=== PATIENT | male | born 1960 ===

== ENCOUNTER 2020-09-14 15:25 | Inpatient (IN) ==
[2020-09-14] MEDS ORDERED: *HR* HYDROcodone/Acet 5/325 mg TABLET PO PRN (18:06)
[2020-09-14] MEDS ORDERED: Naloxone 0.4 MG/ML INJ IVP PRN (18:06)
[2020-09-14] MEDS ORDERED: Ondansetron 4 MG/2 ML VIAL IVP PRN (18:06)
[2020-09-14] MEDS ORDERED: Melatonin 3 MG TABLET PO PRN (18:06)
[2020-09-14] MEDS ORDERED: Acetaminophen 325 MG TABLET PO PRN (18:06)
[2020-09-14] MEDS ORDERED: Ipratropium/Albuterol Neb 3 ML IH PRN (18:08)
[2020-09-14] MEDS ORDERED: *HR* Heparin 5,000 UNIT/ML VIAL IVP PRN ×2 (18:12)
[2020-09-14] MEDS ORDERED: D5% in Water 1,000 ML IVC PRN (18:15)
[2020-09-14] MEDS ORDERED: Dextrose Gel 15 GM/37.5 ML TUBE PO PRN ×2 (18:15)
[2020-09-14] MEDS ORDERED: *HR* Dextrose 50 % in Water (Vial) 50 ML VIAL IVP PRN (18:15)
[2020-09-14] MEDS ORDERED: Saline Nasal Spray 44 ML BOTTLE NS PRN (18:17)
[2020-09-14] MEDS ORDERED: Nicotine 2 MG GUM BC PRN (18:19)
[2020-09-14] MEDS ORDERED: Perflutren Lipid Microsphere 1.3 ML in 0.9 % Sodium Chloride 8.7 ML IVP PRN (18:35)
[2020-09-14 18:50] LABS: Heparin anti-factor XA UFH 0.29 IU/mL (0.30-0.70)
[2020-09-14 18:51] LABS: INR 1.2; Prothrombin Time 13.9 Seconds (9.4-12.1)
[2020-09-14] MEDS: Nicotine 21 MG PATCH.TD24 TD SCH (18:54)
[2020-09-14] MEDS: Metoprolol XL (24 HR) Succ 50 MG TAB.ER.24H PO SCH (18:56)
[2020-09-14] MEDS: methylPREDNISolone 125 MG/2 ML VIAL IVP SCH ×2 (18:57→23:44)
[2020-09-14] MEDS: Heparin 25,000UNIT/250ML 1/2NS 25,000 UNIT/250 ML IV.SOLN IVC SCH (18:59)
[2020-09-14 19:07] LABS: Chol/HDL Ratio 3.4 (0-4.9); Cholesterol 130 mg/dL (< 200); HDL Cholesterol 38 mg/dL (40-59); LDL Cholesterol,Calculated 78 mg/dL (< 100); Lactate Dehydrogenase 204 Units/L (140-271); Triglycerides 70 mg/dL (< 150); Troponin I < 0.03 ng/mL (< 0.04)
[2020-09-14 19:43] LABS: Estimated Average Glucose 189 mg/dl; Hemoglobin A1C 8.2 %
[2020-09-14] MEDS: Ipratropium/Albuterol Neb 3 ML IH SCH ×2 (19:49→23:22)
[2020-09-14] MEDS: Budesonide/Formoterol 160/4.5 1 PUFF INH IH SCH (19:49)
[2020-09-14] MEDS: Sacubitril/Valsartan 49/51 MG 1 TABLET PO SCH (20:15)
[2020-09-14] MEDS: Insulin LISPRO 300 UNITS/3 ML VIAL SUBQ SCH (20:43)
[2020-09-14 21:47] LABS: Adenovirus Not Detected (Not Detect); Bordetella Pertussis Not Detected (Not Detect); Chlamydophila pneumoniae Not Detected (Not Detect); Coronavirus 229E Not Detected (Not Detect); Coronavirus HKU1 Not Detected (Not Detect); Coronavirus NL63 Not Detected (Not Detect); Coronavirus OC43 Not Detected (Not Detect); Human Metapneumovirus Not Detected (Not Detect); Human Rhinovirus/Enterovirus Not Detected (Not Detect); Influenza A Subtype 2009 H1 Not Detected (Not Detect); Influenza B Not Detected (Not Detect); Mycoplasma pneumoniae Not Detected (Not Detect); Parainfluenza Virus 1 Not Detected (Not Detect); Parainfluenza Virus 2 Not Detected (Not Detect); Parainfluenza Virus 3 Not Detected (Not Detect); Parainfluenza Virus 4 Not Detected (Not Detect); Respiratory Syncytial Virus Not Detected (Not Detect)
[2020-09-15 01:20] LABS: Hematocrit 49.7 % (37.5-50.1); Hemoglobin 15.8 g/dL (12.9-16.9); Immature Granulocytes % 0.4 % (0-4); Lymphocytes # 0.5 K/mcL (0.6-4.6); Lymphocytes % 6.2 %; Mean Corpuscular HGB Conc 31.8 g/dL (31.6-35.5); Mean Corpuscular Hemoglobin 30.9 pg (28.0-33.3); Mean Corpuscular Volume 97.1 fL (83.0-100.0); Mean Platelet Volume 9.8 fL (9.4-12.4); Monocytes # 0.1 K/mcL (0.0-1.3); Monocytes % 1.2 %; Neutrophils # 6.7 K/mcL (1.6-8.9); Platelet Count 290 K/mcL (140-400); Red Blood Count 5.12 M/mcL (4.19-5.50); Red Cell Distribution Width 12.5 % (11.5-14.5); Segmented Neutrophils % 92.2 %; White Blood Count 7.3 K/mcL (4.3-11.1)
[2020-09-15 01:30] LABS: INR 1.3; Prothrombin Time 15.1 Seconds (9.4-12.1)
[2020-09-15 01:40] LABS: Alanine Aminotransferase 11 Units/L (7-52); Albumin 3.4 g/dL (3.5-5.7); Albumin/Globulin Ratio 1.1 (1.1-2.2); Alkaline Phosphatase 44 Units/L (34-104); Aspartate Amino Transferase 9 Units/L (13-39); BUN/Creatinine Ratio 21 (6-26); Bilirubin,Total 0.3 mg/dL (0.3-1.0); Blood Urea Nitrogen 20 mg/dL (8-23); Calcium 8.9 mg/dL (8.6-10.3); Carbon Dioxide 23 mEq/L (23-29); Chloride 102 mEq/L (98-107); Glucose 188 mg/dL (70-105); Magnesium 1.9 mg/dL (1.6-2.6); Osmolality,Calculated 290 (280-300); Phosphorous 4.5 mg/dL (2.7-4.5); Sodium 136 mEq/L (136-145); Total Protein 6.4 g/dL (6.4-8.9); eGFR For African Americans > 60 (> 60); eGFR For Non-African Americans > 60 (> 60)
[2020-09-15] MEDS: Ipratropium/Albuterol Neb 3 ML IH SCH ×5 (03:31→19:52)
[2020-09-15] MEDS: Insulin LISPRO 300 UNITS/3 ML VIAL SUBQ SCH ×4 (07:23→20:13)
[2020-09-15] MEDS: Budesonide/Formoterol 160/4.5 1 PUFF INH IH SCH ×2 (07:36→19:52)
[2020-09-15] MEDS: Heparin 25,000UNIT/250ML 1/2NS 25,000 UNIT/250 ML IV.SOLN IVC SCH ×2 (07:58→22:45)
[2020-09-15] MEDS: Multivit/Ca/Min/Fe/FA 1 TAB TABLET PO SCH (09:18)
[2020-09-15] MEDS: Azithromycin 250 MG TABLET PO SCH (09:18)
[2020-09-15] MEDS: Sacubitril/Valsartan 49/51 MG 1 TABLET PO SCH ×2 (09:18→20:13)
[2020-09-15] MEDS: Metoprolol XL (24 HR) Succ 50 MG TAB.ER.24H PO SCH (09:19)
[2020-09-15] MEDS: Nicotine 21 MG PATCH.TD24 TD SCH (09:19)
[2020-09-15] MEDS: methylPREDNISolone 125 MG/2 ML VIAL IVP SCH ×2 (10:37→17:27)
[2020-09-15] MEDS: cefTRIAXone 1,000 MG in 0.9 % Sodium Chloride Mini Bag 100 ML IVPB SCH (10:39)
[2020-09-15] MEDS: DilTIAZem 50 MG/50 ML IV.SOLN IVC SCH ×3 (15:35→22:47)
[2020-09-15] MEDS ORDERED: Isovue-370 500 ML BOTTLE IVP ONE ×2 (16:36)
[2020-09-15] MEDS ORDERED: *HR* Digoxin 0.5 MG/2 ML AMPUL IVP ONE (17:12)
[2020-09-16] MEDS: methylPREDNISolone 125 MG/2 ML VIAL IVP SCH ×3 (00:02→15:54)
[2020-09-16] MEDS: Ipratropium/Albuterol Neb 3 ML IH SCH ×5 (00:12→16:08)
[2020-09-16 07:16] LABS: Hematocrit 48.9 % (37.5-50.1); Hemoglobin 15.5 g/dL (12.9-16.9); Mean Corpuscular HGB Conc 31.7 g/dL (31.6-35.5); Mean Corpuscular Hemoglobin 30.6 pg (28.0-33.3); Mean Corpuscular Volume 96.4 fL (83.0-100.0); Mean Platelet Volume 9.3 fL (9.4-12.4); Platelet Count 309 K/mcL (140-400); Red Blood Count 5.07 M/mcL (4.19-5.50); Red Cell Distribution Width 12.7 % (11.5-14.5); White Blood Count 10.6 K/mcL (4.3-11.1)
[2020-09-16] MEDS: Budesonide/Formoterol 160/4.5 1 PUFF INH IH SCH ×2 (07:22→21:27)
[2020-09-16] MEDS: cefTRIAXone 1,000 MG in 0.9 % Sodium Chloride Mini Bag 100 ML IVPB SCH (08:05)
[2020-09-16] MEDS: Multivit/Ca/Min/Fe/FA 1 TAB TABLET PO SCH (08:09)
[2020-09-16] MEDS: Azithromycin 250 MG TABLET PO SCH (08:09)
[2020-09-16] MEDS: Sacubitril/Valsartan 49/51 MG 1 TABLET PO SCH ×2 (08:09→20:02)
[2020-09-16 08:10] LABS: Alanine Aminotransferase 12 Units/L (7-52); Albumin 3.6 g/dL (3.5-5.7); Albumin/Globulin Ratio 1.2 (1.1-2.2); Alkaline Phosphatase 43 Units/L (34-104); Aspartate Amino Transferase 10 Units/L (13-39); BUN/Creatinine Ratio 26 (6-26); Bilirubin,Total 0.3 mg/dL (0.3-1.0); Blood Urea Nitrogen 27 mg/dL (8-23); Calcium 9.2 mg/dL (8.6-10.3); Carbon Dioxide 24 mEq/L (23-29); Chloride 101 mEq/L (98-107); Glucose 228 mg/dL (70-105); Osmolality,Calculated 292 (280-300); Potassium 4.1 mEq/L (3.5-5.1); Sodium 135 mEq/L (136-145); Total Protein 6.6 g/dL (6.4-8.9); eGFR For African Americans > 60 (> 60); eGFR For Non-African Americans > 60 (> 60)
[2020-09-16] MEDS: Insulin LISPRO 300 UNITS/3 ML VIAL SUBQ SCH ×4 (08:10→20:03)
[2020-09-16] MEDS: Nicotine 21 MG PATCH.TD24 TD SCH (08:11)
[2020-09-16] MEDS ORDERED: 0.9 % Sodium Chloride 1,000 ML IVC ONE (08:18)
[2020-09-16 09:21] LABS: Adenovirus Not Detected (Not Detect); Bordetella Pertussis Not Detected (Not Detect); Chlamydophila pneumoniae Not Detected (Not Detect); Coronavirus 229E Not Detected (Not Detect); Coronavirus HKU1 Not Detected (Not Detect); Coronavirus NL63 Not Detected (Not Detect); Coronavirus OC43 Not Detected (Not Detect); Human Metapneumovirus Not Detected (Not Detect); Human Rhinovirus/Enterovirus Not Detected (Not Detect); Influenza A Subtype 2009 H1 Not Detected (Not Detect); Influenza B Not Detected (Not Detect); Mycoplasma pneumoniae Not Detected (Not Detect); Parainfluenza Virus 1 Not Detected (Not Detect); Parainfluenza Virus 2 Not Detected (Not Detect); Parainfluenza Virus 3 Not Detected (Not Detect); Parainfluenza Virus 4 Not Detected (Not Detect); Respiratory Syncytial Virus Not Detected (Not Detect); SARS-CoV-2 Not Detected (Not Detect)
[2020-09-16] MEDS ORDERED: Ondansetron 4 MG/2 ML VIAL IVP PRN (10:01)
[2020-09-16] MEDS ORDERED: *HR* HYDROcodone/Acet 5/325 mg TABLET PO PRN (10:01)
[2020-09-16] MEDS ORDERED: *HR* FentaNYL (PF) 100 MCG/2 ML VIAL IVP PRN (10:01)
[2020-09-16] MEDS ORDERED: Lidocaine -MPF 2% 2 ML VIAL ONE (10:08)
[2020-09-16] MEDS ORDERED: Lidocaine -MPF 4% 5 ML AMPUL ONE (10:08)
[2020-09-16] MEDS ORDERED: *HR* Succinylcholine 200 MG/10 ML VIAL IVP ONE (10:08)
[2020-09-16] MEDS ORDERED: *HR* Propofol 200 MG/20 ML VIAL IVP ONE (10:08)
[2020-09-16] MEDS ORDERED: *HR* Atropine Sulfate 8 MG/20 ML VIAL IVP ONE (10:08)
[2020-09-16] MEDS ORDERED: *HR* Rocuronium Bromide 50 MG/5 ML VIAL ONE (10:21)
[2020-09-16] MEDS ORDERED: EPHEDrine 50 MG/ML VIAL ONE (10:53)
[2020-09-16] MEDS ORDERED: Lidocaine Viscous Oral Soln 15 ML SOLUTION MM ONE (10:58)
[2020-09-16] MEDS ORDERED: *HR* EPINEPHrine 1 MG/10 ML SYRINGE INTRATRACH PRN (11:22)
[2020-09-16] MEDS ORDERED: Albuterol 2.5 MG/3 ML NEBULIZER ONE (11:26)
[2020-09-16] MEDS ORDERED: *HR* EPINEPHrine 1 MG/10 ML SYRINGE ONE (11:26)
[2020-09-16] MEDS ORDERED: Albuterol 2.5 MG/3 ML NEBULIZER IH ONE (11:39)
[2020-09-16] MEDS ORDERED: Metoprolol XL (24 HR) Succ 50 MG TAB.ER.24H PO SCH ×2 (11:43→21:00)
[2020-09-16] MEDS ORDERED: *HR* Vasopressin 20 UNIT/ML VIAL ONE (11:54)
[2020-09-16] MEDS ORDERED: Gadolinium Contrast Agent (WT Based) IV PRN (12:07)
[2020-09-16] MEDS: Ipratropium Neb 0.5 MG NEBULIZER IH SCH (21:16)
[2020-09-16 21:19] LABS: Appearance of Body Fluid Hazy (Clear); Source of Body Fluid RIGHT UPPER LOBE LUN; Volume of Body Fluid 20 mL
[2020-09-16 23:43] LABS: RBC,Pleural Fluid < 2000 RBC/mcL
[2020-09-16 23:45] LABS: Appearance of Pleural Fl Clear (Clear)
[2020-09-16 23:53] LABS: Total Protein,Pleural Fluid 2.9 g/dL
[2020-09-17] MEDS: methylPREDNISolone 125 MG/2 ML VIAL IVP SCH ×2 (00:15→09:39)
[2020-09-17 00:37] LABS: Basophils,Pleural Fluid 0 %; Eosinophils,Pleural Fluid 0 %
[2020-09-17 02:20] LABS: Hematocrit 48.9 % (37.5-50.1); Hemoglobin 15.4 g/dL (12.9-16.9); Mean Corpuscular HGB Conc 31.5 g/dL (31.6-35.5); Mean Corpuscular Hemoglobin 30.9 pg (28.0-33.3); Mean Platelet Volume 9.4 fL (9.4-12.4); Platelet Count 302 K/mcL (140-400); Red Blood Count 4.99 M/mcL (4.19-5.50); Red Cell Distribution Width 12.9 % (11.5-14.5); White Blood Count 9.4 K/mcL (4.3-11.1)
[2020-09-17 02:41] LABS: Alanine Aminotransferase 12 Units/L (7-52); Albumin 3.4 g/dL (3.5-5.7); Albumin/Globulin Ratio 1.2 (1.1-2.2); Alkaline Phosphatase 41 Units/L (34-104); Aspartate Amino Transferase 9 Units/L (13-39); BUN/Creatinine Ratio 28 (6-26); Bilirubin,Total 0.3 mg/dL (0.3-1.0); Blood Urea Nitrogen 34 mg/dL (8-23); Calcium 8.6 mg/dL (8.6-10.3); Carbon Dioxide 27 mEq/L (23-29); Chloride 102 mEq/L (98-107); Globulin 2.9 g/dL (2.4-3.5); Glucose 220 mg/dL (70-105); Osmolality,Calculated 294 (280-300); Potassium 4.7 mEq/L (3.5-5.1); Sodium 135 mEq/L (136-145); Total Protein 6.3 g/dL (6.4-8.9); eGFR For African Americans > 60 (> 60); eGFR For Non-African Americans > 60 (> 60)
[2020-09-17] MEDS: Ipratropium Neb 0.5 MG NEBULIZER IH SCH ×4 (04:30→22:22)
[2020-09-17] MEDS: Sacubitril/Valsartan 49/51 MG 1 TABLET PO SCH (09:22)
[2020-09-17] MEDS: Azithromycin 250 MG TABLET PO SCH (09:22)
[2020-09-17] MEDS: Multivit/Ca/Min/Fe/FA 1 TAB TABLET PO SCH (09:23)
[2020-09-17] MEDS: cefTRIAXone 1,000 MG in 0.9 % Sodium Chloride Mini Bag 100 ML IVPB SCH (09:24)
[2020-09-17] MEDS: Insulin LISPRO 300 UNITS/3 ML VIAL SUBQ SCH ×4 (09:37→21:18)
[2020-09-17] MEDS: Nicotine 21 MG PATCH.TD24 TD SCH (09:46)
[2020-09-17] MEDS: Budesonide/Formoterol 160/4.5 1 PUFF INH IH SCH ×2 (10:50→22:21)
[2020-09-17] MEDS ORDERED: Lidocaine -MPF 1% 5 ML AMPUL INFILT ONE (15:38)
[2020-09-17] MEDS: MethylPREDNISolone 40 MG/ML VIAL IVP SCH (17:48)
[2020-09-17] MEDS ORDERED: Apixaban 5 MG TABLET PO SCH (21:00)
[2020-09-17] MEDS: Sacubitril/Valsartan 24/26 MG 1 TABLET PO SCH (21:18)
[2020-09-17] MEDS: Insulin DETEMIR 100 UNIT/ML X5UNITS SUBQ SCH (21:19)
[2020-09-18 04:20] LABS: Hematocrit 49.3 % (37.5-50.1); Hemoglobin 15.5 g/dL (12.9-16.9); Mean Corpuscular HGB Conc 31.4 g/dL (31.6-35.5); Mean Corpuscular Hemoglobin 30.6 pg (28.0-33.3); Mean Corpuscular Volume 97.4 fL (83.0-100.0); Platelet Count 272 K/mcL (140-400); Red Blood Count 5.06 M/mcL (4.19-5.50); Red Cell Distribution Width 12.8 % (11.5-14.5); White Blood Count 10.5 K/mcL (4.3-11.1)
[2020-09-18] MEDS: Ipratropium Neb 0.5 MG NEBULIZER IH SCH ×4 (04:20→22:40)
[2020-09-18 04:42] LABS: Alanine Aminotransferase 13 Units/L (7-52); Albumin 3.4 g/dL (3.5-5.7); Albumin/Globulin Ratio 1.3 (1.1-2.2); Alkaline Phosphatase 47 Units/L (34-104); Aspartate Amino Transferase 9 Units/L (13-39); BUN/Creatinine Ratio 34 (6-26); Bilirubin,Total 0.3 mg/dL (0.3-1.0); Blood Urea Nitrogen 36 mg/dL (8-23); Calcium 8.3 mg/dL (8.6-10.3); Carbon Dioxide 25 mEq/L (23-29); Chloride 102 mEq/L (98-107); Globulin 2.6 g/dL (2.4-3.5); Glucose 188 mg/dL (70-105); Osmolality,Calculated 289 (280-300); Potassium 4.7 mEq/L (3.5-5.1); Sodium 133 mEq/L (136-145); eGFR For African Americans > 60 (> 60); eGFR For Non-African Americans > 60 (> 60)
[2020-09-18] MEDS: MethylPREDNISolone 40 MG/ML VIAL IVP SCH ×2 (05:39→18:57)
[2020-09-18] MEDS: Multivit/Ca/Min/Fe/FA 1 TAB TABLET PO SCH (10:24)
[2020-09-18] MEDS: Insulin LISPRO 300 UNITS/3 ML VIAL SUBQ SCH ×3 (10:24→18:59)
[2020-09-18] MEDS: Sacubitril/Valsartan 24/26 MG 1 TABLET PO SCH ×2 (10:24→20:40)
[2020-09-18] MEDS: Nicotine 21 MG PATCH.TD24 TD SCH (10:24)
[2020-09-18] MEDS: Budesonide/Formoterol 160/4.5 1 PUFF INH IH SCH ×2 (10:25→22:40)
[2020-09-18] MEDS: dexAMETHasone 4 MG TABLET PO SCH (11:44)
[2020-09-18] MEDS: Furosemide 20 MG/2 ML VIAL IVP SCH ×2 (11:45→20:40)
[2020-09-18] MEDS ORDERED: *HR* Digoxin 0.5 MG/2 ML AMPUL IVP ONE (12:14)
[2020-09-18] MEDS: *HR* Digoxin 0.5 MG/2 ML AMPUL IVP SCH (14:36)
[2020-09-19] MEDS ORDERED: SODIUM CHLORIDE EXCEL BG 0.9% IV SCH
[2020-09-19] MEDS ORDERED: ETOPOSIDE IV SCH
[2020-09-19] MEDS: Insulin LISPRO 300 UNITS/3 ML VIAL SUBQ SCH ×5 (00:01→21:28)
[2020-09-19] MEDS: Insulin DETEMIR 100 UNIT/ML X5UNITS SUBQ SCH ×2 (00:12→21:49)
[2020-09-19] MEDS: *HR* Digoxin 0.5 MG/2 ML AMPUL IVP SCH (01:20)
[2020-09-19] MEDS: Ipratropium Neb 0.5 MG NEBULIZER IH SCH ×4 (03:49→22:14)
[2020-09-19 04:52] LABS: Basophils % 0.1 %; Hematocrit 51.4 % (37.5-50.1); Immature Granulocytes % 0.8 % (0-4); Lymphocytes # 0.2 K/mcL (0.6-4.6); Lymphocytes % 2.7 %; Mean Corpuscular HGB Conc 31.1 g/dL (31.6-35.5); Mean Corpuscular Hemoglobin 30.5 pg (28.0-33.3); Mean Corpuscular Volume 98.1 fL (83.0-100.0); Mean Platelet Volume 9.1 fL (9.4-12.4); Monocytes # 0.5 K/mcL (0.0-1.3); Monocytes % 5.5 %; Neutrophils # 8.1 K/mcL (1.6-8.9); Platelet Count 232 K/mcL (140-400); Red Blood Count 5.24 M/mcL (4.19-5.50); Red Cell Distribution Width 12.5 % (11.5-14.5); Segmented Neutrophils % 90.9 %; White Blood Count 8.9 K/mcL (4.3-11.1)
[2020-09-19 04:53] LABS: Hematocrit 50.8 % (37.5-50.1); Hemoglobin 16.4 g/dL (12.9-16.9); Mean Corpuscular HGB Conc 32.3 g/dL (31.6-35.5); Mean Corpuscular Hemoglobin 31.2 pg (28.0-33.3); Mean Corpuscular Volume 96.8 fL (83.0-100.0); Mean Platelet Volume 9.3 fL (9.4-12.4); Platelet Count 236 K/mcL (140-400); Red Blood Count 5.25 M/mcL (4.19-5.50); Red Cell Distribution Width 12.4 % (11.5-14.5); White Blood Count 9.1 K/mcL (4.3-11.1)
[2020-09-19 05:12] LABS: Alanine Aminotransferase 13 Units/L (7-52); Albumin 3.3 g/dL (3.5-5.7); Albumin/Globulin Ratio 1.2 (1.1-2.2); Alkaline Phosphatase 44 Units/L (34-104); Aspartate Amino Transferase 8 Units/L (13-39); BUN/Creatinine Ratio 35 (6-26); Bilirubin,Total 0.4 mg/dL (0.3-1.0); Blood Urea Nitrogen 32 mg/dL (8-23); Calcium 8.2 mg/dL (8.6-10.3); Carbon Dioxide 29 mEq/L (23-29); Chloride 102 mEq/L (98-107); Globulin 2.7 g/dL (2.4-3.5); Glucose 206 mg/dL (70-105); Osmolality,Calculated 293 (280-300); Potassium 4.4 mEq/L (3.5-5.1); Sodium 135 mEq/L (136-145); eGFR For African Americans > 60 (> 60); eGFR For Non-African Americans > 60 (> 60)
[2020-09-19] MEDS: MethylPREDNISolone 40 MG/ML VIAL IVP SCH ×2 (06:08→19:09)
[2020-09-19] MEDS: methylPREDNISolone 125 MG/2 ML VIAL IVP SCH (07:34)
[2020-09-19] MEDS: Multivit/Ca/Min/Fe/FA 1 TAB TABLET PO SCH (08:01)
[2020-09-19] MEDS: Furosemide 20 MG/2 ML VIAL IVP SCH (08:03)
[2020-09-19] MEDS: Sacubitril/Valsartan 24/26 MG 1 TABLET PO SCH (08:03)
[2020-09-19] MEDS: Nicotine 21 MG PATCH.TD24 TD SCH (08:03)
[2020-09-19] MEDS: dexAMETHasone 4 MG TABLET PO SCH (08:03)
[2020-09-19] MEDS: Budesonide/Formoterol 160/4.5 1 PUFF INH IH SCH ×2 (09:35→22:15)
[2020-09-19] MEDS ORDERED: *HR* LORazepam 2 MG/ML VIAL IVP PRN (15:00)
[2020-09-19] MEDS ORDERED: EPINEPHrine 1 MG/ML VIAL SQ PRN (15:00)
[2020-09-19] MEDS ORDERED: Hydrocortisone Sodium Succ 100 MG/2 ML VIAL IVP PRN (15:00)
[2020-09-19] MEDS ORDERED: Dexamethasone 10 MG/ML VIAL IVP ONE (15:00)
[2020-09-19] MEDS ORDERED: Fosaprepitant Dimeglumine 150 MG in 0.9 % Sodium Chloride 150 ML IVPB ONE (15:00)
[2020-09-19] MEDS ORDERED: Dexamethasone 10 MG/ML VIAL IVP PRN (15:00)
[2020-09-19] MEDS ORDERED: Famotidine 20 MG/2 ML VIAL IVP PRN (15:00)
[2020-09-19] MEDS ORDERED: ETOPOSIDE IVPB ONE (15:30)
[2020-09-19] MEDS ORDERED: SODIUM CHLORIDE IVPB ONE (15:30)
[2020-09-19] MEDS ORDERED: SODIUM CHLORIDE EXCEL BG IVPB ONE (15:30)
[2020-09-19] MEDS: 0.9 % Sodium Chloride 500 ML IVC SCH (15:54)
[2020-09-19] MEDS ORDERED: SODIUM CHLORIDE 0.9% IV ONE (16:30)
[2020-09-19] MEDS ORDERED: CARBOPLATIN IV ONE (16:30)
[2020-09-19 17:08] LABS: Magnesium 2.4 mg/dL (1.6-2.6); Phosphorous 2.8 mg/dL (2.7-4.5); Uric Acid 4.5 mg/dL (2.3-7.6)
[2020-09-19] MEDS: allopurinoL 300 MG TABLET PO SCH (18:04)
[2020-09-20] MEDS ORDERED: *HR* LORazepam 2 MG/ML VIAL IVP PRN
[2020-09-20] MEDS ORDERED: ETOPOSIDE IVPB SCH
[2020-09-20] MEDS ORDERED: EPINEPHrine 1 MG/ML VIAL SQ PRN
[2020-09-20] MEDS ORDERED: Famotidine 20 MG/2 ML VIAL IVP PRN
[2020-09-20] MEDS ORDERED: Dexamethasone 10 MG/ML VIAL IVP PRN
[2020-09-20] MEDS ORDERED: SODIUM CHLORIDE IVPB SCH
[2020-09-20] MEDS ORDERED: Hydrocortisone Sodium Succ 100 MG/2 ML VIAL IVP PRN
[2020-09-20] MEDS ORDERED: SODIUM CHLORIDE EXCEL BG IVPB SCH
[2020-09-20] MEDS: Ipratropium Neb 0.5 MG NEBULIZER IH SCH ×4 (04:13→20:49)
[2020-09-20 05:08] LABS: Hemoglobin 16.6 g/dL (12.9-16.9); Mean Corpuscular HGB Conc 31.3 g/dL (31.6-35.5); Mean Corpuscular Hemoglobin 30.7 pg (28.0-33.3); Mean Platelet Volume 9.6 fL (9.4-12.4); Platelet Count 203 K/mcL (140-400); Red Blood Count 5.41 M/mcL (4.19-5.50); Red Cell Distribution Width 12.6 % (11.5-14.5); White Blood Count 11.1 K/mcL (4.3-11.1)
[2020-09-20 05:28] LABS: Alanine Aminotransferase 15 Units/L (7-52); Albumin 3.6 g/dL (3.5-5.7); Albumin/Globulin Ratio 1.5 (1.1-2.2); Alkaline Phosphatase 43 Units/L (34-104); Aspartate Amino Transferase 7 Units/L (13-39); BUN/Creatinine Ratio 33 (6-26); Bilirubin,Total 0.5 mg/dL (0.3-1.0); Blood Urea Nitrogen 33 mg/dL (8-23); Calcium 8.2 mg/dL (8.6-10.3); Carbon Dioxide 31 mEq/L (23-29); Chloride 104 mEq/L (98-107); Globulin 2.4 g/dL (2.4-3.5); Glucose 164 mg/dL (70-105); Osmolality,Calculated 295 (280-300); Potassium 4.9 mEq/L (3.5-5.1); Sodium 137 mEq/L (136-145); eGFR For African Americans > 60 (> 60); eGFR For Non-African Americans > 60 (> 60)
[2020-09-20 05:30] LABS: Magnesium 2.4 mg/dL (1.6-2.6); Phosphorous 3.3 mg/dL (2.7-4.5); Uric Acid 3.8 mg/dL (2.3-7.6)
[2020-09-20 05:31] LABS: Magnesium 2.3 mg/dL (1.6-2.6); Phosphorous 3.3 mg/dL (2.7-4.5); Uric Acid 3.8 mg/dL (2.3-7.6)
[2020-09-20] MEDS: Multivit/Ca/Min/Fe/FA 1 TAB TABLET PO SCH (09:44)
[2020-09-20] MEDS: Nicotine 21 MG PATCH.TD24 TD SCH (09:44)
[2020-09-20] MEDS: allopurinoL 300 MG TABLET PO SCH (09:44)
[2020-09-20] MEDS: dexAMETHasone 4 MG TABLET PO SCH (09:44)
[2020-09-20] MEDS: Insulin LISPRO 300 UNITS/3 ML VIAL SUBQ SCH ×4 (09:46→21:42)
[2020-09-20] MEDS ORDERED: Ringers Solution, Lactated 1,000 ML IVC SCH (10:45)
[2020-09-20] MEDS: Budesonide/Formoterol 160/4.5 1 PUFF INH IH SCH ×2 (10:49→20:49)
[2020-09-20] MEDS: Loratadine 10 MG TABLET PO SCH (13:59)
[2020-09-20] MEDS ORDERED: Dexamethasone 10 MG/ML VIAL IVP ONE (15:00)
[2020-09-20] MEDS ORDERED: ETOPOSIDE IVPB ONE (15:00)
[2020-09-20] MEDS ORDERED: SODIUM CHLORIDE EXCEL BG IVPB ONE (15:00)
[2020-09-20] MEDS ORDERED: SODIUM CHLORIDE IVPB ONE (15:00)
[2020-09-20] MEDS: 0.9 % Sodium Chloride 500 ML IVC SCH (15:55)
[2020-09-20] MEDS ORDERED: Furosemide 40 MG/4 ML VIAL IVP ONE (19:45)
[2020-09-20] MEDS: Insulin DETEMIR 100 UNIT/ML X5UNITS SUBQ SCH (21:42)
[2020-09-21] MEDS ORDERED: Hydrocortisone Sodium Succ 100 MG/2 ML VIAL IVP PRN
[2020-09-21] MEDS ORDERED: *HR* LORazepam 2 MG/ML VIAL IVP PRN
[2020-09-21] MEDS ORDERED: EPINEPHrine 1 MG/ML VIAL SQ PRN
[2020-09-21] MEDS ORDERED: Dexamethasone 10 MG/ML VIAL IVP PRN
[2020-09-21] MEDS ORDERED: Famotidine 20 MG/2 ML VIAL IVP PRN
[2020-09-21] MEDS: Ipratropium Neb 0.5 MG NEBULIZER IH SCH ×4 (04:15→22:17)
[2020-09-21 04:39] LABS: Hematocrit 53.5 % (37.5-50.1); Hemoglobin 16.6 g/dL (12.9-16.9); Mean Corpuscular Hemoglobin 30.7 pg (28.0-33.3); Mean Corpuscular Volume 99.1 fL (83.0-100.0); Mean Platelet Volume 9.7 fL (9.4-12.4); Platelet Count 222 K/mcL (140-400); Red Cell Distribution Width 12.6 % (11.5-14.5); White Blood Count 12.2 K/mcL (4.3-11.1)
[2020-09-21 04:55] LABS: BUN/Creatinine Ratio 28 (6-26); Blood Urea Nitrogen 36 mg/dL (8-23); Calcium 8.2 mg/dL (8.6-10.3); Carbon Dioxide 31 mEq/L (23-29); Chloride 99 mEq/L (98-107); Glucose 201 mg/dL (70-105); Osmolality,Calculated 294 (280-300); Potassium 4.4 mEq/L (3.5-5.1); Sodium 135 mEq/L (136-145); eGFR For African Americans > 60 (> 60); eGFR For Non-African Americans 57 (> 60)
[2020-09-21 04:56] LABS: Magnesium 2.3 mg/dL (1.6-2.6); Phosphorous 3.5 mg/dL (2.7-4.5); Uric Acid 4.1 mg/dL (2.3-7.6)
[2020-09-21] MEDS: Insulin LISPRO 300 UNITS/3 ML VIAL SUBQ SCH ×4 (09:52→21:56)
[2020-09-21] MEDS: dexAMETHasone 4 MG TABLET PO SCH (09:53)
[2020-09-21] MEDS: Loratadine 10 MG TABLET PO SCH (09:53)
[2020-09-21] MEDS: Nicotine 21 MG PATCH.TD24 TD SCH (09:53)
[2020-09-21] MEDS: Multivit/Ca/Min/Fe/FA 1 TAB TABLET PO SCH (09:53)
[2020-09-21] MEDS: allopurinoL 300 MG TABLET PO SCH (09:53)
[2020-09-21] MEDS: Budesonide/Formoterol 160/4.5 1 PUFF INH IH SCH ×2 (11:16→22:17)
[2020-09-21] MEDS ORDERED: Furosemide 40 MG/4 ML VIAL IVP SCH (11:30)
[2020-09-21] MEDS ORDERED: Furosemide 40 MG/4 ML VIAL IVP ONE (11:32)
[2020-09-21] MEDS ORDERED: Furosemide 20 MG/2 ML VIAL IVP ONE (11:40)
[2020-09-21] MEDS ORDERED: Dexamethasone 10 MG/ML VIAL IVP ONE (15:00)
[2020-09-21] MEDS ORDERED: ETOPOSIDE IVPB ONE ×2 (15:00)
[2020-09-21] MEDS ORDERED: SODIUM CHLORIDE EXCEL BG IVPB ONE ×2 (15:00)
[2020-09-21] MEDS ORDERED: Ringers Solution, Lactated 500 ML IVC ONE ×2 (15:00)
[2020-09-21] MEDS ORDERED: SODIUM CHLORIDE IVPB ONE ×2 (15:00)
[2020-09-21] MEDS ORDERED: Ringers Solution, Lactated 1,000 ML IVC ONE (15:00)
[2020-09-21] MEDS: 0.9 % Sodium Chloride 500 ML IVC SCH ×2 (16:04→16:09)
[2020-09-21 17:09] LABS: Magnesium 2.4 mg/dL (1.6-2.6); Uric Acid 4.1 mg/dL (2.3-7.6)
[2020-09-21] MEDS: Insulin DETEMIR 100 UNIT/ML X5UNITS SUBQ SCH (21:57)
[2020-09-22] MEDS: 0.9 % Sodium Chloride 500 ML IVC SCH ×4 (03:27→07:39)
[2020-09-22 03:28] LABS: Basophils % 0.1 %; Eosinophils # 0.1 K/mcL (0.0-0.6); Eosinophils % 0.4 %; Hematocrit 50.7 % (37.5-50.1); Hemoglobin 15.9 g/dL (12.9-16.9); Immature Granulocytes % 0.6 % (0-4); Lymphocytes # 0.7 K/mcL (0.6-4.6); Lymphocytes % 5.3 %; Mean Corpuscular HGB Conc 31.4 g/dL (31.6-35.5); Mean Corpuscular Hemoglobin 30.5 pg (28.0-33.3); Mean Corpuscular Volume 97.3 fL (83.0-100.0); Mean Platelet Volume 9.4 fL (9.4-12.4); Monocytes # 0.3 K/mcL (0.0-1.3); Monocytes % 2.2 %; Neutrophils # 11.3 K/mcL (1.6-8.9); Platelet Count 206 K/mcL (140-400); Red Blood Count 5.21 M/mcL (4.19-5.50); Red Cell Distribution Width 12.5 % (11.5-14.5); Segmented Neutrophils % 91.4 %; White Blood Count 12.3 K/mcL (4.3-11.1)
[2020-09-22 03:44] LABS: BUN/Creatinine Ratio 36 (6-26); Blood Urea Nitrogen 39 mg/dL (8-23); Carbon Dioxide 29 mEq/L (23-29); Chloride 101 mEq/L (98-107); Glucose 148 mg/dL (70-105); Osmolality,Calculated 292 (280-300); Potassium 4.4 mEq/L (3.5-5.1); Sodium 135 mEq/L (136-145); eGFR For African Americans > 60 (> 60); eGFR For Non-African Americans > 60 (> 60)
[2020-09-22 03:46] LABS: Magnesium 2.3 mg/dL (1.6-2.6); Phosphorous 3.6 mg/dL (2.7-4.5); Uric Acid 4.2 mg/dL (2.3-7.6)
[2020-09-22] MEDS: Ipratropium Neb 0.5 MG NEBULIZER IH SCH ×3 (04:01→15:50)
[2020-09-22] MEDS ORDERED: Furosemide 40 MG/4 ML VIAL IVP ONE (07:12)
[2020-09-22 08:16] VITALS: BP 107/74
[2020-09-22] MEDS: Multivit/Ca/Min/Fe/FA 1 TAB TABLET PO SCH (09:00)
[2020-09-22] MEDS: allopurinoL 300 MG TABLET PO SCH (09:00)
[2020-09-22] MEDS: Nicotine 21 MG PATCH.TD24 TD SCH (09:00)
[2020-09-22] MEDS: Loratadine 10 MG TABLET PO SCH (09:00)
[2020-09-22] MEDS: dexAMETHasone 4 MG TABLET PO SCH (09:00)
[2020-09-22] MEDS: Insulin LISPRO 300 UNITS/3 ML VIAL SUBQ SCH ×3 (09:01→16:50)
[2020-09-22] MEDS: Budesonide/Formoterol 160/4.5 1 PUFF INH IH SCH (09:48)
[2020-09-22 17:50] LABS: Magnesium 2.2 mg/dL (1.6-2.6); Phosphorous 3.4 mg/dL (2.7-4.5); Uric Acid 3.9 mg/dL (2.3-7.6)
== END 2020-09-22 17:40 | disposition home or self-care (01) | DRG 166 ==
LOC: 3BNU → SUATTDRO 17:24 → 2NENU 09-16 13:18 → 3ANU 09-18 20:03
PROVIDERS: ADMIT Internal Medicine; ATTEND Internal Medicine
PROC: ENDOAPI (2020-09-16 14:15)